=== PATIENT | male | born 1990 | race Caucasian/White ===

== ENCOUNTER 2016-12-12 16:06 | Observation (INO) | payer OTHER ==
[2016-12-12 17:06] LABS: BASOPHILS % (AUTO) 0.3 %; EOSINOPHILS % (AUTO) 0.3 %; HCT - HEMATOCRIT 52.5 % (42.0-52.0); HGB - HEMOGLOBIN 17.9 g/dL (14.0-18.0); LYMPHOCYTES # (AUTO) 0.4 10^3/uL (1.5-3.5); LYMPHOCYTES % (AUTO) 2.8 %; MEAN CORPUSCULAR HEMOGLOBIN 27.9 pg (27.0-31.0); MEAN CORPUSCULAR HGB CONC 34.2 g/dL (32.0-36.0); MEAN CORPUSCULAR VOLUME 81.7 fL (80.0-94.0); MEAN PLATELET VOLUME 8.2 fL (7.4-11.4); MONOCYTES # (AUTO) 0.7 10^3/uL (0.0-1.0); MONOCYTES % (AUTO) 5.1 %; NEUTROPHILS # (AUTO) 11.9 10^3/uL (1.5-6.6); NEUTROPHILS % (AUTO) 91.5 %; NUCLEATED RED BLOOD CELLS AUTO 0.2 /100WBC; RED BLOOD COUNT 6.43 10^6/uL (4.70-6.10); UNCORRECTED WHITE BLOOD COUNT 13.1 x10^3/uL; WHITE BLOOD COUNT 13.1 x10^3/uL (4.8-10.8)
[2016-12-12 17:18] LABS: ALBUMIN/GLOBULIN RATIO 1.7 (1.0-2.2); BILIRUBIN,TOTAL 1.1 mg/dL (0.2-1.0); CALCIUM 9.6 mg/dL (8.5-10.3); CREATININE 0.9 mg/dL (0.6-1.2); POTASSIUM 3.9 mmol/L (3.5-5.0); TOTAL PROTEIN 8.5 g/dL (6.7-8.2)
[2016-12-12] MEDS ORDERED: ONDANSETRON 4 MG/2 ML VIAL IVP STA (17:43)
[2016-12-12] MEDS ORDERED: HYDROmorphone 1 MG/ML SYRINGE IVP STA (17:43)
[2016-12-12] MEDS ORDERED: SODIUM CHLORIDE 0.9% 1,000 ML IV ONE ×2 (17:43→19:30)
[2016-12-12] MEDS ORDERED: ONDANSETRON 4 MG/2 ML VIAL ONE (18:06)
[2016-12-12] MEDS ORDERED: HYDROmorphone 1 MG/ML SYRINGE ONE (19:19)
[2016-12-12] MEDS ORDERED: IOPAMIDOL-300 100 ML VIAL IVP ONE (19:48)
--- NOTE | 2016-12-12 19:49 | ED Physician Documentation ---
History of Present Illness - Stated complaint Stated Complaint: R SIDE ABD PX - Chief complaint Chief Complaint: Abd Pain - Additonal information Additional information: hx from pot aburpt onset chest pain about ( AM like a ball stuck in his chest then spread to his back, now severe abd pain no fever cough SOA + NV no diarrhea near syncope this AM and then again upon arrival into room 13 no prior abd surgery no hx same AD [place], recently out on boat but no foreign travel no sick contacts denies CO in house Review of Systems Constitutional: denies: Fever, Chills Throat: denies: Sore throat Cardiac: reports: Chest pain / pressure Respiratory: denies: Dyspnea, Cough GI: reports: Abdominal Pain, Nausea, Vomiting. denies: Diarrhea Musculoskeletal: reports: Back pain Neurologic: reports: Near syncope. denies: Headache, Head injury Endocrine: denies: Easy bruising / bleeding Immunocompromised: denies: Immunocompromised PD PAST MEDICAL HISTORY - Past Medical History Cardiovascular: None Respiratory: None Endocrine/Autoimmune: None GI: None : None HEENT: Chronic vision loss, Other Psych: None Musculoskeletal: Other Derm: None - Past Surgical History Past Surgical History: No - Present Medications Home Medications: Ambulatory Orders Medication Instructions Recorded Confirmed No Known Home Medications [No 07/06/13 07/12/15 Known Home Medications] - Allergies Allergies/Adverse Reactions: Allergies Allergy/AdvReac Type Severity Reaction Status Date / Time No Known Drug Allergies Allergy Verified 07/12/15 11:12 - Social History Does the pt smoke?: Yes Smoking Status: Former smoker Does the pt drink ETOH?: Yes - Immunizations Immunizations are current?: No Immunizations: TDAP current <10years PD ED PE NORMAL - Vitals Vital signs reviewed: Yes - General General: Other (near syncopal, weak pale, eyes closed but responding) - HEENT HEENT: Atraumatic - Neck Neck: Supple, no meningeal sign - Cardiac Cardiac: RRR - Respiratory Respiratory: No respiratory distress, Clear bilaterally - Abdomen Abdomen: Soft, Other (severe diffuse abd TTP s rebound or guarding) - Back Back: No CVA TTP - Derm Derm: Normal color - Neuro Neuro: Alert and oriented X 3 Results - Vitals Vitals: Vital Signs - 24 hr 12/12/16 12/12/16 12/12/16 16:22 17:30 17:45 Temperature 36 C L Heart Rate 90 74 74 Respiratory 20 20 Rate Blood Pressure 129/87 H 118/73 127/69 O2 Saturation 98 98 100 12/12/16 12/12/16 12/12/16 17:47 18:00 18:30 Temperature 37.7 C H Heart Rate 68 76 76 Respiratory 20 20 20 Rate Blood Pressure 118/73 133/79 H 131/73 H O2 Saturation 100 98 98 12/12/16 12/12/16 19:00 20:33 Temperature 37.3 C Heart Rate 72 76 Respiratory 18 18 Rate Blood Pressure 117/67 121/72 O2 Saturation 98 100 Oxygen O2 Source Room air - EKG (time done) 1803 Rate: Rate (enter#) (73) Rhythm: NSR Intervals: Other (borderline short [place], no delta wave) Ischemia: Normal ST segments, Non specific changes - Labs Labs: Laboratory Tests 12/12/16 12/12/16 12/12/16 16:59 16:59 16:59 WBC 13.1 H RBC 6.43 H Hgb 17.9 Hct 52.5 H MCV 81.7 MCH 27.9 MCHC 34.2 RDW 13.0 Plt Count 242 MPV 8.2 Neut # 11.9 H Lymph # 0.4 L [place] # 0.7 Eos # 0.0 Baso # 0.0 Absolute Nucleated RBC 0.02 Nucleated RBCs 0.2 Sodium 136 Potassium 3.9 Chloride 99 L Carbon Dioxide 25 Anion Gap 12.0 BUN 18 Creatinine 0.9 Estimated GFR (MDRD) 100 Glucose 119 H Calcium 9.6 Total Bilirubin 1.1 H AST 25 ALT 22 Alkaline Phosphatase 77 Troponin I < 0.04 Total Protein 8.5 H Albumin 5.3 Globulin 3.2 Albumin/Globulin Ratio 1.7 Lipase 29 - Rads (name of study) CT angio chest abd pelvis Radiology: See rad report (acute, no dissection, no cardiomegaly, no PE, no effusion, no FF, nl GB, no stones) PD MEDICAL DECISION MAKING - ED course ED course: numerous episodes of near syncope with associated chest abd and back pain nl labs EKG no acute except short pr merits tele and perhaps an echo d/w hospitalist who agrees to place in obs Departure - Departure Disposition: ED Place in Observation Clinical Impression: Syncopal episodes Qualifiers: Syncope type: unspecified Qualified Code(s): R55 - Syncope and collapse Chest pain Qualifiers: Chest pain type: unspecified Qualified Code(s): R07.9 - Chest pain, unspecified Abdominal pain Qualifiers: Abdominal location: unspecified location Qualified Code(s): R10.9 - Unspecified abdominal pain Back pain Qualifiers: Back pain location: low back pain Chronicity: acute Back pain laterality: unspecified Sciatica presence: without sciatica Qualified Code(s): M54.5 - Low back pain Condition: Fair
--- NOTE | 2016-12-12 20:23 | CT Preliminary Report ---
Exam: CT Chest Angio (AORTA) IMPRESSION: Normal chest, abdomen and pelvis CT angiogram. No aneurysm or dissection. [facility] SITE ID: [id number]
--- NOTE | 2016-12-12 20:25 | CT Report ---
<H1.> EXAM: CT ANGIOGRAM CHEST, ABDOMEN AND PELVIS EXAM DATE: 12/12/2016 07:53 PM. CLINICAL HISTORY: Chest pain rad to back and abd with syncope. COMPARISONS: None. TECHNIQUE: Routine axial helical CT angiographic imaging was performed through the chest, abdomen, and pelvis. I V Contrast: 100 cc Isovue-300 IV. Reconstructions: Coronal, sagittal, and 3D MIP reconstructions of t he aorta. In accordance with CT protocol optimization, one or more of the following dose reduction techniques w ere utilized for this exam: automated exposure control, adjustment of mA and/or KV based on patient s ize, or use of iterative reconstructive technique. FINDINGS: Vascular Structures: Normal. No aneurysm, dissection, or significant atherosclerotic disease of the t horacic aorta, abdominal aorta, or iliac arteries. The visualized pulmonary, mesenteric, and solid or rogers vascular structures are also within normal limits. Lungs/Pleura: No consolidation, nodules, or edema. No effusions or pneumothorax. Mediastinum: Normal. No cardiac enlargement or adenopathy. Abdominal Organs: Normal. The liver, spleen, pancreas, adrenal glands, gallbladder and kidneys are no rmal in size and demonstrate no masses or abnormal enhancement. Peritoneal Cavity: Normal. No free fluid, free air, or acute inflammatory process. Pelvic Organs: Normal. The bladder and visualized pelvic organs are within normal limits. Bones: No significant abnormality. Other: None. IMPRESSION: Normal chest, abdomen and pelvis CT angiogram. No aneurysm or dissection. [facility] Referring Provider Line: [phone] SITE ID: [id number]
--- NOTE | 2016-12-12 21:35 | CT Preliminary Report ---
Exam: CT Head W/O IMPRESSION: No acute intracranial abnormality. [facility] SITE ID: [id number]
--- NOTE | 2016-12-12 21:38 | CT Report ---
EXAM: CT HEAD EXAM DATE: 12/12/2016 09:16 PM. CLINICAL HISTORY: Syncope. COMPARISON: None available. TECHNIQUE: Multiaxial CT images were obtained from the foramen magnum to the vertex. IV contrast: Non e. Reformats: Coronal. In accordance with CT protocol optimization, one or more of the following dose reduction techniques w ere utilized for this exam: automated exposure control, adjustment of mA and/or KV based on patient s ize, or use of iterative reconstructive technique. FINDINGS: Parenchyma: No intraparenchymal hemorrhage. No evidence of mass, midline shift, or CT findings of inf arction. Lorenzo-white differentiation is distinct. Extraaxial Spaces: Normal for age. No subdural or epidural collections identified. Ventricles: Normal in size and position. Sinuses: Imaged paranasal sinuses, orbits, and mastoids show no significant abnormality. Bones: No evidence of fracture or calvarial defect. Other: None. IMPRESSION: No acute intracranial abnormality. [facility] Referring Provider Line: [phone] SITE ID: [id number]
[2016-12-12 22:02] LABS: BILIRUBIN,URINE NEGATIVE (NEGATIVE); PH,URINE 5.5 PH (5.0-7.5)
[2016-12-12 22:03] LABS: UA CHARGE (STRIP ONLY) YES; UR CULTURE IF IND NOT INDICATED
[2016-12-12] MEDS ORDERED: MORPHINE 10 MG/ML VIAL IVP ONE (22:49)
[2016-12-12] MEDS ORDERED: SODIUM CHLORIDE FLUSH 0.9% 10 ML SYRINGE IVP PRN (22:55)
[2016-12-12] MEDS ORDERED: TEMAZEPAM 15 MG CAPSULE PO PRN (22:55)
[2016-12-12] MEDS ORDERED: ONDANSETRON 4 MG/2 ML VIAL IVP PRN (22:55)
[2016-12-12] MEDS ORDERED: MORPHINE 2 MG/ML SYRINGE IVP PRN (22:55)
--- NOTE | 2016-12-13 00:03 | HISTORY & PHYSICAL EXAMINATION ---
DATE OF ADMISSION: 12/12/2016 CHIEF COMPLAINT: Abdominal pain. HISTORY OF PRESENT ILLNESS: The patient is a 26-year-old white male who is healthy and takes no outpatient medications other than occasional Excedrin for migraine. He does not have history of abdominal surgeries. I got a somewhat different history from the ER physician, Dr. Sepulveda, and from the patient. The ER physician reported the following: The main reason to admit this patient, per the ER physician, was syncope. She reported that this patient developed acute chest pain and near syncopal episode around 9 a.m., and subsequently the patient developed back pain and abdominal pain as well. The patient reported a somewhat different history, telling me that he developed acute abdominal pain around 10:30 in the morning. The pain was intense, was associated with nausea, vomiting. The patient had regular bowel movements. Last bowel movement was earlier on admission day. He saw no blood in his stool or in his vomitus. He did not report fever; however, looking at his vital signs, he had elevated temperature at 37.3 Celsius. At the ER, the patient was given 2 liters IV fluid. He received several IV Dilaudid doses. Per the ER physician's report, the patient had a near syncopal episode at the ER, at which time he became pale and diaphoretic and passed out, although his vital signs remained stable. Regarding the ER workup, white blood cell count was slightly elevated at 13.1. Liver function tests and chemistry panel unremarkable. Troponin negative. Creatinine kinase normal. Lipase normal. The patient underwent CT angiography of chest, abdomen and pelvis. ER physician wanted to rule out dissection. The study was negative. Subsequently, the patient stayed in the ER for several hours and there was no improvement in his symptoms. When I examined him, his only complaint was periumbilical abdominal pain. PAST MEDICAL HISTORY 1. Ulnar decompression. Elbow surgery. 2. Migraine. OUTPATIENT MEDICATIONS: None taken except for occasional p.r.n. Excedrin for headache. ER workup reviewed per electronic medical record. SOCIAL HISTORY: The patient smokes cigarettes and drinks alcohol, about 5 alcoholic drinks per week. He denied drug use. ALLERGIES: NO KNOWN DRUG ALLERGIES. FAMILY HISTORY: Mother had hypertension and diabetes. Grandparents had lung cancer. REVIEW OF SYSTEMS: Please see pertinent positives listed at history of the present illness. The patient did not report additional complaint; 12-point review was otherwise negative. PHYSICAL EXAMINATION: VITAL SIGNS: Temperature 37.3 Celsius, heart rate in the 70s, blood pressure 130 /70, respiratory rate 18, oxygen saturation 100% on room air. GENERAL: The patient is a well-developed young male who was in mild distress, complaining of abdominal pain. ABDOMEN: Bowel tones hypoactive. Periumbilical, diffuse tenderness with voluntary guarding, no rebound. SKIN: Mild pallor, no jaundice. CARDIOVASCULAR: S1, S2. No pathologic murmur. RESPIRATORY: Clear to auscultation bilaterally without wheezes or crackles. LYMPHATIC: No lymphedema. MUSCULOSKELETAL: Unremarkable, atraumatic. NEUROLOGIC: Neurologically alert, oriented, nonfocal. PSYCHIATRIC: Cooperative. ASSESSMENT AND PLAN: The patient is a 26-year-old male who does not have significant medical history. He presented with acute abdominal pain which started on the morning of December 12, 2016, and he had additional symptoms of nausea and vomiting as well. He had elevated white blood cell count and elevated temperature. Per ER report, he did have syncopal episodes and chest pain but the patient himself did not confirm that. Notably, he does not have cardiac history. Does not have history of abdominal surgeries. Still has his appendix. DIAGNOSIS/ACTIVE ISSUES 1. Uncontrolled abdominal pain, unknown etiology at this point. 2. Febrile illness with abdominal pain, nausea, vomiting, most likely viral illness. 3. Negative ER workup, including CT angiography of chest, abdomen and pelvis. 4. Hemodynamically stable. PLAN AND ORDERS 1. The patient is getting admitted under observation status. 2. Given the syncopal episode, I checked CT scan of the brain which was negative and I placed telemetry orders, ruling out cardiac arrhythmia, but retrospective following the clinical course and talking more with the patient, it does not seem like he had true syncopal episodes, more like he had brief mental status changes due to excruciating pain. 3. Given the febrile illness, we will order urine culture, blood cultures. 4. Check urine toxicology. 5. Given the acute abdominal pain, added lactic acid to the workup. I spoke with the covering radiologist and I asked him to specifically look at the appendix. The on-call radiologist reported that the appendix looked completely normal, was well visualized on the CT scan. No repeat imaging would be indicated. In addition, the radiologist reported that the CT scans which were done with contrast were good quality studies and no abnormalities were seen. 6. Pain control and symptom control. 7. Deep venous thrombosis prophylaxis with sequential compression device. 8. Further plan will depend on the clinical course. Time spent in the care of this patient was 60 minutes, which included coordination of his care and discussing CT scans with Radiology. JOB #: [id number] [facility] JOB #:[id number] [facility]
[2016-12-13] MEDS: LACTATED RINGERS 500 ML IV SCH ×4 (00:59→13:53)
[2016-12-13] MEDS: HYDROcod/ACETAM 5/325 MG TABLET PO PRN ×3 (01:00→10:12)
[2016-12-13] MEDS ORDERED: PANTOPRAZOLE 40 MG TABLET ONE (05:47)
[2016-12-13] MEDS: SODIUM CHLORIDE FLUSH 0.9% 10 ML SYRINGE IVP SCH ×2 (05:49→15:50)
[2016-12-13] MEDS ORDERED: PANTOPRAZOLE 40 MG TABLET PO SCH (07:00)
[2016-12-13] MEDS ORDERED: POLYETHYLENE GLYCOL 3350 17 GM PACKET PO SCH (09:00)
[2016-12-13 16:45] VITALS: BP 117/70
--- NOTE | 2016-12-13 17:52 | Discharge Plan ---
Discharge Plan Disposition: 01 Home, Self Care Diet: Regular Activity Restrictions: Activity as Tolerated Shower Restrictions: No Driving Restrictions: No Instruction Topics: Abdominal Pain, Syncope, Syncope Causes, Syncope Dx No Smoking: If you smoke, Please STOP! Call for help.
--- NOTE | 2016-12-17 01:42 | DISCHARGE SUMMARY ---
DATE OF ADMISSION: 12/12/2016 DATE OF DISCHARGE: 12/13/2016 PRESENTATION: This is a 26-year-old white male who presented with severe lightheadedness ("near syncope") after he was "doubled over with pain in the abdomen". The pain was "intense" and associated with nausea and vomiting. There was no blood in his vomit or in any abnormal bowel movements. He did have an elevated temperature of 37.3. He received 2 liters of fluids in the ER. He was placed in observation for evaluation of abdominal pain and management of the same. HOSPITAL COURSE AND DISCHARGE DIAGNOSIS: 1) Presumed acute viral gastroenteritis. The patient received 2 liters of IV fluids because of the "near syncopal episode". He had stable vital signs during observation. He had a slightly elevated white count of 13.1, but normal liver test, chemistry panel, troponins, lipase. The patient underwent a CT with angiogram of the chest, abdomen and pelvis, and this was within normal limits. The patient received medications for pain control and by the following morning he had near complete resolution of his symptoms and was able to take liquid diet , then advanced to a full diet without any further nausea, vomiting, and he never had diarrhea. There was no fever on the next day. The patient was advised to take fluids, rest and was not discharged with any new prescriptions. CONDITION AT THE TIME OF DISCHARGE: Stable. FOLLOWUP: With his primary care doctor. JOB #: [id number] EXT JOB #:[id number] [facility]
== END 2016-12-13 18:02 | disposition home or self-care (01) ==
LOC: ED 16:06 → OBS 22:55
PROVIDERS: ADMIT Internal Medicine; ATTEND Internal Medicine
DX: R10.9 Unspecified abdominal pain (principal); R55 Syncope and collapse; R11.2 Nausea with vomiting, unspecified; R50.9 Fever, unspecified; F17.210 Nicotine dependence, cigarettes, uncomplicated
CPT/HCPCS: 36415; 70450; 71275; 74174; 80053; 80306; 81003; 82550; 83605; 83690; 84484; 85025; 87040; 87275; 87276; 93005; 96361; 96374; 96375; 99284; A9270; G0378; J1170; J2270; J7120; Q9967; 80307; 80320; 81001; 87086

== ENCOUNTER 2019-01-02 18:36 | Emergency (ER) | payer OTHER ==
[2019-01-02 19:21] LABS: BASOPHILS % (AUTO) 0.5 %; EOSINOPHILS % (AUTO) 0.3 %; HGB - HEMOGLOBIN 15.1 g/dL (14.0-18.0); LYMPHOCYTES # (AUTO) 1.7 10^3/uL (1.5-3.5); LYMPHOCYTES % (AUTO) 25.5 %; MEAN CORPUSCULAR HEMOGLOBIN 27.9 pg (27.0-31.0); MEAN CORPUSCULAR HGB CONC 33.9 g/dL (32.0-36.0); MEAN CORPUSCULAR VOLUME 82.1 fL (80.0-94.0); MEAN PLATELET VOLUME 9.9 fL (7.4-11.4); MONOCYTES # (AUTO) 0.5 10^3/uL (0.0-1.0); MONOCYTES % (AUTO) 7.7 %; NEUTROPHILS # (AUTO) 4.3 10^3/uL (1.5-6.6); NEUTROPHILS % (AUTO) 65.5 %; PLT - PLATELET COUNT 234 10^3/uL (130-450); RED BLOOD COUNT 5.42 10^6/uL (4.70-6.10); RED CELL DISTRIBUTION WIDTH 11.9 % (12.0-15.0); WHITE BLOOD COUNT 6.5 x10^3/uL (4.8-10.8)
[2019-01-02 19:37] LABS: ALBUMIN 4.8 g/dL (3.2-5.5); ALBUMIN/GLOBULIN RATIO 1.5 (1.0-2.2); BILIRUBIN,TOTAL 0.6 mg/dL (0.2-1.0); CALCIUM 9.5 mg/dL (8.5-10.3); CREATININE 0.9 mg/dL (0.6-1.2)
--- NOTE | 2019-01-02 19:40 | ED Physician Documentation ---
PD HPI CHEST PAIN - Stated complaint Stated Complaint: CHEST PX/SOA - Chief complaint Chief Complaint: Cardiac - History obtained from History obtained from: Patient - History of Present Illness Timing - onset: Other (28-year-old gentleman was working on his truck about an hour and a half ago. He slipped and basically punched the ground and developed pain over the right third metacarpal. At that same time he developed some somewhat substernal nonradiating chest pressure that has since defervesced. He still feels a little bit if he takes a deep breath. He was short of breath but is not now. Denies recent travel, calf pain, pedal edema. No history of DVT or PE or coronary disease.) Review of Systems Ten Systems: 10 systems reviewed and negative Constitutional: denies: Fever, Chills, Fatigue Ears: denies: Loss of hearing, Ear pain Nose: denies: Rhinorrhea / runny nose, Congestion Cardiac: denies: Palpitations, Pedal edema, Calf pain Respiratory: denies: Cough, Hemoptysis, Wheezing PD PAST MEDICAL HISTORY - Past Medical History Cardiovascular: None Respiratory: None Endocrine/Autoimmune: None GI: None : None HEENT: Other Psych: None Musculoskeletal: Other Derm: None - Past Surgical History Past Surgical History: No - Allergies Allergies/Adverse Reactions: Allergies Allergy/AdvReac Type Severity Reaction Status Date / Time No Known Drug Allergies Allergy Verified 01/02/19 18:40 - Social History Does the pt smoke?: Yes Smoking Status: Current every day smoker Does the pt drink ETOH?: Yes - Immunizations Immunizations are current?: No Immunizations: TDAP current <10years PD ED PE NORMAL - Vitals Vital signs reviewed: Yes - General General: Alert and oriented X 3, No acute distress - HEENT HEENT: PERRL, EOMI - Neck Neck: Supple, no meningeal sign, No bony TTP - Cardiac Cardiac: RRR, No murmur - Respiratory Respiratory: No respiratory distress, Clear bilaterally - Abdomen Abdomen: Normal bowel sounds, Soft, Non tender - Extremities Extremities: No edema, No calf tenderness / cord, Other (Tender with soft tissue swelling over the dorsum of the hand near the third metacarpal, good range of motion.) - Neuro Neuro: Alert and oriented X 3, Normal speech Results - Vitals Vitals: Vital Signs - 24 hr 01/02/19 01/02/19 01/02/19 18:40 20:02 20:07 Temperature 37.2 C Heart Rate 68 64 60 Respiratory 16 17 17 Rate Blood Pressure 144/96 H 140/100 H 126/98 H O2 Saturation 98 100 98 01/02/19 20:12 Temperature 36.8 C Heart Rate Respiratory Rate Blood Pressure O2 Saturation Oxygen O2 Source Room air - EKG (time done) 1842 Rate: Rate (enter#) (77) Rhythm: NSR, LAE Intervals: Normal VA QRS: Normal Ischemia: ST elevation c/w repol Computer interpretation: Agree with computer - Labs Labs: Laboratory Tests 01/02/19 01/02/19 01/02/19 19:15 19:15 19:15 WBC 6.5 RBC 5.42 Hgb 15.1 Hct 44.5 MCV 82.1 MCH 27.9 MCHC 33.9 RDW 11.9 L Plt Count 234 MPV 9.9 Neut # (Auto) 4.3 Lymph # (Auto) 1.7 Iron # (Auto) 0.5 Eos # (Auto) 0.0 Baso # (Auto) 0.0 Absolute Nucleated RBC 0.00 Nucleated RBC % 0.0 Sodium 139 Potassium 4.0 Chloride 103 Carbon Dioxide 27 Anion Gap 9.0 BUN 11 Creatinine 0.9 Estimated GFR (MDRD) 99 Glucose 93 Calcium 9.5 Total Bilirubin 0.6 AST 24 ALT 31 Alkaline Phosphatase 67 Troponin I High Sens 3.4 Total Protein 8.0 Albumin 4.8 Globulin 3.2 Albumin/Globulin Ratio 1.5 Lipase 22 - Rads (name of study) X-rays of the right hand and 2 views of the chest Radiology: EMP read contemporaneously (Soft tissue swelling of the dorsal hand, otherwise negative) PD MEDICAL DECISION MAKING - ED course ED course: 28-year-old gentleman with atypical chest pain that started during a stressful episode and a near fall. Heart score 1. Departure - Departure Disposition: 01 Home, Self Care Clinical Impression: Atypical chest pain Contusion of right hand Qualifiers: Encounter type: initial encounter Qualified Code(s): S60.221A - Contusion of right hand, initial encounter Condition: Good Record reviewed to determine appropriate education?: Yes Instructions: ED Chest Pain Atypical Unkn Cause Comments: Tylenol or ibuprofen as needed. Follow-up with your doctor, next available appointments. Return for new worsening symptoms. Discharge Date/Time: 01/02/19 20:17
--- NOTE | 2019-01-02 19:51 | XRAY Report ---
Reason: chest pain Procedure Date: 01/02/2019 Accession Number: [id number] / [id number] Procedure: XR - Chest 2 View X-Ray CPT Code: 26653 FULL RESULT: EXAM: CHEST RADIOGRAPHY EXAM DATE: 01/02/2019 07:29 PM. CLINICAL HISTORY: Chest pain. COMPARISON: None. TECHNIQUE: 2 views. FINDINGS: Lungs/Pleura: No focal opacities evident. No pleural effusion. No pneumothorax. Normal volumes. Mediastinum: Heart and mediastinal contours are unremarkable. Other: None. IMPRESSION: No acute intrathoracic plain film abnormality. [facility]
--- NOTE | 2019-01-02 19:58 | XRAY Report ---
Reason: hand inj Procedure Date: 01/02/2019 Accession Number: [id number] / [id number] Procedure: XR - Hand 3 View RT CPT Code: FULL RESULT: EXAM: RIGHT HAND RADIOGRAPHY EXAM DATE: 01/02/2019 07:29 PM. CLINICAL HISTORY: Hand injury after fall. Fell, landed on concrete, hit third knuckle, swollen knuckle and painful. COMPARISON: XR HAND MIN 3 VIEWS 03/16/2011 1:37 AM. TECHNIQUE: 3 views. FINDINGS: Bones: Normal. No fractures or bone lesions. Joints: Normal. No subluxations. Soft Tissues: Moderate dorsal hand soft tissue swelling over the metacarpophalangeal joints. No evidence for acute fracture. IMPRESSION: Moderate dorsal hand soft tissue swelling over the metacarpophalangeal joints. No evidence for acute fracture. [facility]
[2019-01-02 20:07] VITALS: BP 126/98
== END 2019-01-02 20:17 | disposition home or self-care (01) ==
LOC: ED 18:36
DX: R07.89 Other chest pain (principal); S60.221A Contusion of right hand, initial encounter; W01.0XXA Fall on same level from slipping, tripping and stumbling without subsequent striking against object, initial encounter; F17.200 Nicotine dependence, unspecified, uncomplicated
CPT/HCPCS: 36415; 71046; 80053; 83690; 84484; 85025; 93005; 99284

== ENCOUNTER 2019-01-27 11:05 | Emergency (ER) | payer OTHER ==
--- NOTE | 2019-01-27 12:34 | ED Physician Documentation ---
History of Present Illness - Stated complaint Stated Complaint: FEVER - Chief complaint Chief Complaint: Fever - Additonal information Additional information: This is a 28-year-old male who presents with 3 to 4 days of fever, cough, sore throat. Patient's whole family has been sick with similar symptoms, but he has had a fever of 102 F days. He has taken some Tylenol ibuprofen and the fever resolved, then no recur. He denies any difficulty breathing, chest pain, abdominal pain, vomiting, or diarrhea. No difficulty or pain with urination. His cough is productive of some dark yellow/green sputum. No hemoptysis. Review of Systems Constitutional: reports: Fever Throat: reports: Sore throat Respiratory: reports: Cough PD PAST MEDICAL HISTORY - Past Medical History Cardiovascular: None Respiratory: None Endocrine/Autoimmune: None GI: None : None HEENT: Other Psych: None Musculoskeletal: Other Derm: None - Past Surgical History Past Surgical History: No Ortho: Other - Present Medications Home Medications: Ambulatory Orders Medication Instructions Recorded Confirmed Benzonatate [Tessalon Perle] 100 - 200 mg PO TID PRN #30 capsule 01/27/19 - Allergies Allergies/Adverse Reactions: Allergies Allergy/AdvReac Type Severity Reaction Status Date / Time No Known Drug Allergies Allergy Verified 01/02/19 18:40 - Social History Does the pt smoke?: Yes Smoking Status: Current every day smoker Does the pt drink ETOH?: Yes - Immunizations Immunizations are current?: No Immunizations: TDAP current <10years PD ED PE NORMAL - Vitals Vital signs reviewed: Yes - General General: Alert and oriented X 3, No acute distress - HEENT HEENT: PERRL, Ears normal, Other (Posterior pharynx erythema, no exudate.) - Neck Neck: Supple, no meningeal sign - Cardiac Cardiac: RRR - Respiratory Respiratory: No respiratory distress, Clear bilaterally - Abdomen Abdomen: Normal bowel sounds, Soft, Non tender, Non distended - Derm Derm: Warm and dry - Extremities Extremities: No deformity - Neuro Neuro: Alert and oriented X 3 - Psych Psych: Normal mood, Normal affect Results - Vitals Vitals: Vital Signs - 24 hr 01/27/19 01/27/19 11:14 13:22 Temperature 37 C Heart Rate 70 56 L Respiratory 18 18 Rate Blood Pressure 155/95 H 151/89 H O2 Saturation 97 98 Oxygen O2 Source Room air PD MEDICAL DECISION MAKING - ED course Complexity details: considered differential (URI, pharyngitis, strep throat, pneumonia, UTI) ED course: Patient's symptoms are consistent with an upper respiratory infection, his vital signs are unremarkable, he is nontoxic-appearing. He does have a sore throat without signs of strep throat or GLASS BELT SANDER. Given the duration of his symptoms for 3 days, his clear lungs, normal oxygen saturation, I highly doubt pneumonia at this time. He also has no urinary symptoms. I discussed with him that I feel that he has a viral syndrome, and recommended supportive care. I did give a dose of dexamethasone here for sore throat, and a prescription for Tessalon Perles for his cough. I discussed dosing of Tylenol and ibuprofen, and Reviewed return precautions for any concerning or worsening symptoms. Patient agreed this plan was discharged home in the care of his partner. Departure - Departure Disposition: 01 Home, Self Care Clinical Impression: Viral upper respiratory infection Condition: Good Instructions: ED Viral Syndrome Prescriptions: Benzonatate [Tessalon Perle] 100 - 200 mg PO TID PRN #30 capsule PRN Reason: Cough Comments: You appear to have a viral illness today. We have given you a steroid which should help with inflammation in your throat and airways. You can also take the Tessalon Perles to help with cough. Try tea with honey as well for your cough. You may take ibuprofen 600 mg every 6 hours as needed for fever and pain, and 650 mg of Tylenol every 4-6 hours for fever and pain. These may be taken together or staggered. Get plenty of rest and drink adequate fluids. If you are developing difficulty breathing, blood in your sputum, or other concerning symptoms please return to the emergency department. Otherwise follow-up with your primary care provider as needed. Forms: Activity restrictions
[2019-01-27] MEDS ORDERED: DEXAMETHASONE 10 MG/ML VIAL PO STA (13:03)
[2019-01-27] MEDS ORDERED: CHERRY SYRUP 10 ML UDC PO ONE (13:03)
[2019-01-27 13:23] VITALS: BP 151/89
== END 2019-01-27 13:31 | disposition home or self-care (01) ==
LOC: ED 11:05
DX: J06.9 Acute upper respiratory infection, unspecified (principal); J02.9 Acute pharyngitis, unspecified; F17.200 Nicotine dependence, unspecified, uncomplicated
CPT/HCPCS: 99282; 99283